=== PATIENT | female | born 1935 | race African-American/Black ===

== ENCOUNTER 2019-10-23 12:40 | Inpatient (IN) | payer OTHER ==
[~2019-10-23] VITALS: Ht 165.1 cm; Wt 93.5 kg
[2019-10-23] MEDS ORDERED: LABETALOL HCL 5 MG/ML 4ML SYRINGE IV ONE (13:15)
[2019-10-23] MEDS ORDERED: FUROSEMIDE 40 MG/4 ML VIAL IV ONE (13:30)
[2019-10-23 14:02] LABS: Basophils # (auto) 0 10 ^3/uL (0-0.2); Basophils % (auto) 0.4 % (0.0-2.0); Eosinophils # (auto) 0 10 ^3/uL (0-0.8); Eosinophils % (auto) 0.2 % (0.0-7.0); Hematocrit 40.9 % (36.0-46.0); Hemoglobin 13.2 g/dL (12.2-16.2); Lymphocytes # (auto) 0.9 10 ^3/uL (0.4-5.4); Mean Corpuscular Hemoglobin 29.1 pg (28.0-32.0); Mean Corpuscular Hgb Conc. 32.3 g/dL (32.0-36.0); Mean Corpuscular Volume 90.1 fL (80.0-100.0); Monocytes # (auto) 0.5 10 ^3/uL (0-1.3); Monocytes % (auto) 6.5 % (0.0-12.0); Neutrophils # (auto) 6.5 10 ^3/uL (1.6-8.6); Neutrophils % (auto) 81.9 % (37.0-80.0); Nucleated Red Blood Cells % 0.1 %; Platelet Count (auto) 214 10^3/uL (140-450); Red Blood Cells 4.54 10^6/uL (4.0-5.20); Red Cell Distribution Width 14.8 % (11.8-14.3); White Blood Cell 7.9 10^3/uL (4.4-10.8)
[2019-10-23 14:13] LABS: BUN/Creatinine Ratio 17.7
[2019-10-23 14:17] LABS: Total Protein 7.5 g/dL (6.4-8.2)
[2019-10-23] MEDS ORDERED: ASPirin 81 mg TAB PO ONE (15:00)
[2019-10-23] MEDS ORDERED: NITROGLYCERIN 50MG/250ML 250 ML IV ONE (15:00)
[2019-10-23] MEDS ORDERED: ENOXAPARIN SOD 120 MG/0.8 ML SYRINGE SC ONE (15:00)
[2019-10-23] MEDS ORDERED: NITROGLYCERIN 50MG/250ML 250 ML IV SCH (15:00)
[2019-10-23] MEDS ORDERED: ALBUTEROL SULF 2.5 MG/0.5ML(0.5%) NEB SOLN NEB PRN (15:15)
[2019-10-23] MEDS ORDERED: MORPHINE SULF INJ 2 MG/ML SYRINGE 1ML IV PRN (15:15)
[2019-10-23] MEDS ORDERED: traMADol HCL 50 MG TAB PO PRN (15:15)
[2019-10-23] MEDS ORDERED: NITROGLYCERIN 0.4 MG SL TAB SL PRN (15:15)
[2019-10-23] MEDS ORDERED: ONDANSETRON HCL 4 MG/2 ML VIAL IV PRN (15:15)
[2019-10-23] MEDS ORDERED: ACETAMINOPHEN 500 MG TAB PO PRN (15:15)
[2019-10-23] MEDS ORDERED: LACTULOSE 20Gm/30ML SOLN PO PRN ×2 (15:15)
[2019-10-23 19:01] VITALS: BP 121/53
[2019-10-23] MEDS: FUROSEMIDE 40 MG/4 ML VIAL IV SCH (20:00)
[2019-10-23] MEDS: CARVEDILOL 3.125 MG TAB PO SCH (20:05)
[2019-10-23] MEDS: SODIUM CHLOR 0.9% PF (SALINE LOCK) 10ML VIAL/SYR IV SCH (21:54)
[2019-10-23] MEDS ORDERED: ENOXAPARIN SOD 80 MG/0.8ML SYRINGE SC SCH (22:00)
[2019-10-23] MEDS: ATORVASTATIN 20 MG TAB PO SCH (22:00)
[2019-10-23 22:14] LABS: Urine WBC None Seen /hpf (0 - 5)
[2019-10-23 22:27] LABS: Urine Amorphous Crystal FEW /hpf (None Seen); Urine Bacteria MANY /hpf (None Seen); Urine Blood 3+ /uL (Negative); Urine Hyaline Cast FEW /lpf (0 - 2); Urine Mucus FEW (None Seen); Urine Specific Gravity 1.009 (1.001-1.035)
[2019-10-23] MEDS: cefTRIAXone 1GM/50ML D5W 50 ML IV SCH (23:44)
[2019-10-24] MEDS: FUROSEMIDE 40 MG/4 ML VIAL IV SCH ×2 (05:23→18:39)
[2019-10-24] MEDS: SODIUM CHLOR 0.9% PF (SALINE LOCK) 10ML VIAL/SYR IV SCH ×3 (05:24→22:28)
[2019-10-24] MEDS ORDERED: ENOXAPARIN SOD 80 MG/0.8ML SYRINGE SC SCH (06:00)
[2019-10-24 06:53] LABS: Basophils # (auto) 0 10 ^3/uL (0-0.2); Basophils % (auto) 0.5 % (0.0-2.0); Eosinophils # (auto) 0.2 10 ^3/uL (0-0.8); Eosinophils % (auto) 2.2 % (0.0-7.0); Hematocrit 43.9 % (36.0-46.0); Hemoglobin 14.2 g/dL (12.2-16.2); Lymphocytes % (auto) 25.5 % (10.0-50.0); Mean Corpuscular Hemoglobin 29.5 pg (28.0-32.0); Mean Corpuscular Hgb Conc. 32.5 g/dL (32.0-36.0); Mean Corpuscular Volume 90.8 fL (80.0-100.0); Monocytes # (auto) 0.6 10 ^3/uL (0-1.3); Monocytes % (auto) 7.3 % (0.0-12.0); Neutrophils % (auto) 64.5 % (37.0-80.0); Nucleated Red Blood Cells % 0.2 %; Platelet Count (auto) 180 10^3/uL (140-450); Red Blood Cells 4.83 10^6/uL (4.0-5.20); White Blood Cell 7.8 10^3/uL (4.4-10.8)
[2019-10-24 07:12] LABS: Chloride 106 mmol/L (98-107); Potassium 3.7 mmol/L (3.5-5.1); Sodium 137 mmol/L (136-145)
[2019-10-24 07:20] LABS: Alanine Aminotransferase 15 U/L (13-56); Albumin 2.6 g/dL (3.4-5.0); Anion Gap 8 (5-15); Aspartate Aminotransferase 31 U/L (15-37); BUN/Creatinine Ratio 18.4; Blood Urea Nitrogen 26 mg/dL (7-18); Calcium 10.1 mg/dL (8.5-10.1); Carbon Dioxide 23 mmol/L (21-32); Cholesterol 268 mg/dL (< 200); GFR African American 46 mL/min; GFR Non-African American 38 mL/min; Glucose 121 mg/dL (74-106)
[2019-10-24 07:22] LABS: Alkaline Phosphatase 94 U/L (45-117); Bilirubin, Total 1.2 mg/dL (0.2-1.0); HDL Cholesterol 70 mg/dL (40-59); LDL Cholesterol 180 mg/dL (< 100); Total Protein 7.8 g/dL (6.4-8.2); Triglycerides 88 mg/dL (< 150)
[2019-10-24] MEDS: CARVEDILOL 3.125 MG TAB PO SCH (08:00)
[2019-10-24] MEDS ORDERED: HEPARIN DRIP/D5W 100UNITS/ML 250 ML IV SCH ×2 (08:50→09:15)
[2019-10-24] MEDS ORDERED: CLOPIDOGREL BISULFATE 75 MG TAB PO ONE (09:00)
[2019-10-24] MEDS ORDERED: CARVEDILOL 3.125 MG TAB PO ONE (09:00)
[2019-10-24] MEDS ORDERED: HEPARIN SODIUM (PORCINE) 5000 UNITS/ML 1ML VIAL IV ONE (09:00)
[2019-10-24] MEDS ORDERED: CARVEDILOL 12.5 MG TAB PO ONE (09:00)
[2019-10-24] MEDS: POTASSIUM CHL 20 Meq TABLET PO SCH (10:00)
[2019-10-24] MEDS ORDERED: ENALAPRIL MALEATE 2.5 MG TAB PO SCH (10:00)
[2019-10-24] MEDS: ASPirin 81 mg TAB PO SCH (10:00)
[2019-10-24] MEDS ORDERED: levoFLOXacin 500MG 100 ML IV SCH (10:00)
[2019-10-24] MEDS ORDERED: CARVEDILOL 12.5 MG TAB PO SCH (10:00)
[2019-10-24] MEDS: PANTOPRAZOLE 40 MG TAB PO SCH (10:00)
[2019-10-24] MEDS ORDERED: CLOPIDOGREL 300 MG TAB PO ONE (10:15)
[2019-10-24 11:42] LABS: INR 1.17 (0.9-1.15)
[2019-10-24 11:44] LABS: Partial Thromboplastin Time 106.8 sec (23.64-32.05)
[2019-10-24 14:25] LABS: Basophils # (auto) 0 10 ^3/uL (0-0.2); Basophils % (auto) 0.5 % (0.0-2.0); Eosinophils # (auto) 0.2 10 ^3/uL (0-0.8); Eosinophils % (auto) 2.8 % (0.0-7.0); Hemoglobin 13.4 g/dL (12.2-16.2); Lymphocytes % (auto) 22.8 % (10.0-50.0); Mean Corpuscular Hemoglobin 28.9 pg (28.0-32.0); Mean Corpuscular Hgb Conc. 32.6 g/dL (32.0-36.0); Mean Corpuscular Volume 88.5 fL (80.0-100.0); Monocytes # (auto) 0.7 10 ^3/uL (0-1.3); Neutrophils # (auto) 5.8 10 ^3/uL (1.6-8.6); Neutrophils % (auto) 65.9 % (37.0-80.0); Platelet Count (auto) 214 10^3/uL (140-450); Red Blood Cells 4.63 10^6/uL (4.0-5.20); Red Cell Distribution Width 14.9 % (11.8-14.3); White Blood Cell 8.8 10^3/uL (4.4-10.8)
[2019-10-24 17:00] VITALS: BP 126/62
[2019-10-24 17:49] VITALS: BP 126/62
[2019-10-24] MEDS ORDERED: CARVEDILOL 3.125 MG TAB PO SCH (18:00)
[2019-10-24 20:21] LABS: INR 1.28 (0.9-1.15); Partial Thromboplastin Time 61.2 sec (23.64-32.05)
[2019-10-24 22:00] VITALS: BP 162/74
[2019-10-24] MEDS: ATORVASTATIN 20 MG TAB PO SCH (22:28)
[2019-10-24] MEDS: hydrALAZINE HCL 20 MG/ML VL IV PRN (22:29)
[2019-10-24] MEDS ORDERED: LISINOPRIL 20 MG TAB PO ONE (23:15)
[2019-10-24] MEDS ORDERED: METOPROLOL TARTRATE 50 MG TAB PO ONE (23:15)
[2019-10-24] MEDS ORDERED: amLODIPine BESYLATE 5 MG TAB PO ONE (23:30)
[2019-10-24] MEDS ORDERED: IPRATROPIUM BROM 0.5 MG/2.5ML INH SOL NEB PRN (23:45)
[2019-10-24] MEDS ORDERED: ALBUTEROL SULF 2.5 MG/0.5ML(0.5%) NEB SOLN NEB PRN (23:45)
[2019-10-25] MEDS: cefTRIAXone 1GM/50ML D5W 50 ML IV SCH (01:40)
[2019-10-25] MEDS ORDERED: IPRATROPIUM BROM 0.5 MG/2.5ML INH SOL NEB SCH (02:00)
[2019-10-25 03:21] LABS: Basophils # (auto) 0.1 10 ^3/uL (0-0.2); Basophils % (auto) 0.5 % (0.0-2.0); Eosinophils # (auto) 0.2 10 ^3/uL (0-0.8); Eosinophils % (auto) 1.6 % (0.0-7.0); Hematocrit 45.7 % (36.0-46.0); Hemoglobin 14.9 g/dL (12.2-16.2); Lymphocytes # (auto) 1.3 10 ^3/uL (0.4-5.4); Lymphocytes % (auto) 12.1 % (10.0-50.0); Mean Corpuscular Hemoglobin 29.1 pg (28.0-32.0); Mean Corpuscular Hgb Conc. 32.6 g/dL (32.0-36.0); Mean Corpuscular Volume 89.1 fL (80.0-100.0); Monocytes # (auto) 0.6 10 ^3/uL (0-1.3); Monocytes % (auto) 5.3 % (0.0-12.0); Neutrophils # (auto) 8.5 10 ^3/uL (1.6-8.6); Neutrophils % (auto) 80.5 % (37.0-80.0); Platelet Count (auto) 203 10^3/uL (140-450); Red Blood Cells 5.13 10^6/uL (4.0-5.20); Red Cell Distribution Width 14.9 % (11.8-14.3); White Blood Cell 10.6 10^3/uL (4.4-10.8)
[2019-10-25 03:37] LABS: INR 1.07 (0.9-1.15); Partial Thromboplastin Time 33.9 sec (23.64-32.05)
[2019-10-25 03:51] LABS: Anion Gap 11 (5-15); Blood Urea Nitrogen 29 mg/dL (7-18); Calcium 9.9 mg/dL (8.5-10.1); Carbon Dioxide 27 mmol/L (21-32); Chloride 100 mmol/L (98-107); Glucose 161 mg/dL (74-106); Potassium 3.6 mmol/L (3.5-5.1); Sodium 138 mmol/L (136-145)
[2019-10-25 03:53] LABS: Alanine Aminotransferase 16 U/L (13-56); Albumin 3.1 g/dL (3.4-5.0); Aspartate Aminotransferase 25 U/L (15-37); BUN/Creatinine Ratio 16.8; GFR African American 36 mL/min; GFR Non-African American 30 mL/min
[2019-10-25 03:55] LABS: Alkaline Phosphatase 98 U/L (45-117); Bilirubin, Total 1.1 mg/dL (0.2-1.0); Cholesterol 274 mg/dL (< 200); HDL Cholesterol 73 mg/dL (40-59); Phosphorus 3.1 mg/dL (2.5-4.90); Total Protein 7.8 g/dL (6.4-8.2); Triglycerides 78 mg/dL (< 150)
[2019-10-25] MEDS ORDERED: HEPARIN SODIUM (PORCINE) 5000 UNITS/ML 1ML VIAL IV ONE (04:00)
[2019-10-25 04:24] LABS: LDL Cholesterol 183 mg/dL (< 100)
[2019-10-25 05:00] VITALS: BP 162/109
[2019-10-25] MEDS: FUROSEMIDE 40 MG/4 ML VIAL IV SCH ×2 (05:45→18:29)
[2019-10-25] MEDS: SODIUM CHLOR 0.9% PF (SALINE LOCK) 10ML VIAL/SYR IV SCH ×3 (05:45→21:42)
[2019-10-25 08:35] VITALS: BP 165/81
[2019-10-25] MEDS: ASPirin 81 mg TAB PO SCH (10:00)
[2019-10-25] MEDS ORDERED: amLODIPine BESYLATE 5 MG TAB PO SCH (10:00)
[2019-10-25] MEDS ORDERED: METOPROLOL TARTRATE 50 MG TAB PO SCH (10:00)
[2019-10-25] MEDS: PANTOPRAZOLE 40 MG TAB PO SCH (10:00)
[2019-10-25] MEDS: POTASSIUM CHL 20 Meq TABLET PO SCH (10:00)
[2019-10-25] MEDS ORDERED: LISINOPRIL 20 MG TAB PO SCH ×2 (10:00)
[2019-10-25] MEDS: FAMOTIDINE 20 MG TAB PO SCH (10:00)
[2019-10-25 10:10] LABS: INR 1.09 (0.9-1.15)
[2019-10-25 10:17] LABS: Partial Thromboplastin Time 75.8 sec (23.64-32.05)
[2019-10-25] MEDS ORDERED: HEPARIN DRIP/D5W 100UNITS/ML 250 ML IV SCH (10:30)
[2019-10-25 12:44] VITALS: BP 158/85
[2019-10-25 16:35] VITALS: BP 156/92
[2019-10-25 17:55] LABS: INR 1.09 (0.9-1.15); Partial Thromboplastin Time 67.1 sec (23.64-32.05)
[2019-10-25] MEDS: ATORVASTATIN 20 MG TAB PO SCH (21:43)
[2019-10-25 22:20] VITALS: BP 132/49
[2019-10-26] MEDS: cefTRIAXone 1GM/50ML D5W 50 ML IV SCH (01:19)
[2019-10-26 03:26] LABS: INR 1.09 (0.9-1.15); Partial Thromboplastin Time 39.4 sec (23.64-32.05)
[2019-10-26] MEDS ORDERED: HEPARIN DRIP/D5W 100UNITS/ML 250 ML IV SCH (03:45)
[2019-10-26 05:12] VITALS: BP 157/80
[2019-10-26] MEDS: FUROSEMIDE 40 MG/4 ML VIAL IV SCH (05:30)
[2019-10-26] MEDS: SODIUM CHLOR 0.9% PF (SALINE LOCK) 10ML VIAL/SYR IV SCH ×3 (05:30→21:45)
[2019-10-26 06:37] LABS: Basophils # (auto) 0.1 10 ^3/uL (0-0.2); Basophils % (auto) 0.6 % (0.0-2.0); Eosinophils # (auto) 0 10 ^3/uL (0-0.8); Eosinophils % (auto) 0.1 % (0.0-7.0); Hemoglobin 13.6 g/dL (12.2-16.2); Lymphocytes # (auto) 1.6 10 ^3/uL (0.4-5.4); Lymphocytes % (auto) 12.6 % (10.0-50.0); Mean Corpuscular Hemoglobin 29.5 pg (28.0-32.0); Mean Corpuscular Hgb Conc. 33.2 g/dL (32.0-36.0); Mean Corpuscular Volume 88.6 fL (80.0-100.0); Monocytes # (auto) 1.1 10 ^3/uL (0-1.3); Monocytes % (auto) 8.5 % (0.0-12.0); Neutrophils # (auto) 9.8 10 ^3/uL (1.6-8.6); Neutrophils % (auto) 78.2 % (37.0-80.0); Platelet Count (auto) 221 10^3/uL (140-450); Red Blood Cells 4.63 10^6/uL (4.0-5.20); Red Cell Distribution Width 14.8 % (11.8-14.3); White Blood Cell 12.6 10^3/uL (4.4-10.8)
[2019-10-26 06:41] LABS: INR 1.09 (0.9-1.15); Partial Thromboplastin Time 65.9 sec (23.64-32.05)
[2019-10-26 06:45] LABS: Potassium 3.5 mmol/L (3.5-5.1)
[2019-10-26 07:09] LABS: Albumin 2.9 g/dL (3.4-5.0); BUN/Creatinine Ratio 16.7; Bilirubin, Total 0.8 mg/dL (0.2-1.0); Magnesium 1.9 mg/dL (1.6-2.6); Phosphorus 4.2 mg/dL (2.5-4.90); Total Protein 7.5 g/dL (6.4-8.2)
[2019-10-26] MEDS ORDERED: LIDOCAINE 2%HCL (LOCAL ANESTH.) INJ 20ML MDV ONE (07:29)
[2019-10-26] MEDS ORDERED: IOHEXOL 350 MG/ML 100ML IJ ONE (07:29)
[2019-10-26] MEDS ORDERED: ACETYLCYSTEINE ORAL for CIN 20%(200MG/ML) 4ML PO ONE (07:45)
[2019-10-26] MEDS ORDERED: ANGIOMAX 250 MG VIAL IV ONE (08:22)
[2019-10-26] MEDS ORDERED: diphenhdrAMINE HCL 50 MG/1 ML VL ONE (08:23)
[2019-10-26] MEDS ORDERED: MIDAZOLAM HCL 1MG/1ML-2 ML VIAL ONE (08:23)
[2019-10-26] MEDS ORDERED: VERAPAMIL 2.5MG/ML INJ 2ML VIAL IV ONE (08:23)
[2019-10-26] MEDS ORDERED: fentaNYL CITRATE 100 MCG/2 ML VL ONE (08:24)
[2019-10-26] MEDS ORDERED: SODIUM CHL 0.9% 50 ML ONE (08:24)
[2019-10-26 09:00] VITALS: BP 114/85
[2019-10-26] MEDS ORDERED: IODIXANOL 320MG/ML 100ML BTL IV ONE (09:18)
[2019-10-26] MEDS ORDERED: hydrALAZINE HCL 20 MG/ML VL ONE (09:36)
[2019-10-26] MEDS ORDERED: TICAGRELOR 90 MG TAB ONE (09:47)
[2019-10-26] MEDS ORDERED: ASPirin 325 MG TAB ONE (09:47)
[2019-10-26] MEDS ORDERED: ASPirin-EC 81 mg tab PO ONE (10:00)
[2019-10-26] MEDS: FAMOTIDINE 20 MG TAB PO SCH (10:00)
[2019-10-26] MEDS: PANTOPRAZOLE 40 MG TAB PO SCH (10:00)
[2019-10-26] MEDS: ASPirin 81 mg TAB PO SCH (10:00)
[2019-10-26] MEDS ORDERED: LISINOPRIL 20 MG TAB PO SCH (10:18)
[2019-10-26] MEDS ORDERED: TICAGRELOR 90 MG TAB NG ONE (11:45)
[2019-10-26] MEDS ORDERED: ASPirin-EC 325mg tab PO ONE (12:15)
[2019-10-26] MEDS: amLODIPine BESYLATE 5 MG TAB PO SCH (12:27)
[2019-10-26] MEDS: CARVEDILOL 3.125 MG TAB PO SCH ×2 (12:27→17:04)
[2019-10-26 13:00] VITALS: BP 135/61
[2019-10-26] MEDS: hydrALAZINE HCL 10 MG TAB PO SCH ×2 (13:31→21:45)
[2019-10-26] MEDS: SODIUM CHLORIDE 0.9% 1,000 ML IV SCH (13:31)
[2019-10-26 13:44] LABS: INR 1.58 (0.9-1.15); Partial Thromboplastin Time 66.7 sec (23.64-32.05)
[2019-10-26 16:28] VITALS: BP 143/90
[2019-10-26] MEDS: TICAGRELOR 90 MG TAB PO SCH (21:46)
[2019-10-26] MEDS: ATORVASTATIN 20 MG TAB PO SCH (21:46)
[2019-10-26 22:00] VITALS: BP 166/80
[2019-10-26] MEDS ORDERED: ACETYLCYSTEINE ORAL for CIN 20%(200MG/ML) 4ML PO SCH (22:00)
[2019-10-27] MEDS: cefTRIAXone 1GM/50ML D5W 50 ML IV SCH (00:31)
[2019-10-27 05:00] VITALS: BP 151/87
[2019-10-27] MEDS: hydrALAZINE HCL 10 MG TAB PO SCH ×3 (06:00→23:09)
[2019-10-27] MEDS: SODIUM CHLOR 0.9% PF (SALINE LOCK) 10ML VIAL/SYR IV SCH ×3 (06:16→23:08)
[2019-10-27] MEDS: SODIUM CHLORIDE 0.9% 1,000 ML IV SCH ×2 (06:16→18:48)
[2019-10-27] MEDS: CARVEDILOL 3.125 MG TAB PO SCH ×2 (07:22→18:00)
[2019-10-27] MEDS: hydrALAZINE HCL 20 MG/ML VL IV PRN (07:26)
[2019-10-27 08:20] LABS: Basophils # (auto) 0 10 ^3/uL (0-0.2); Basophils % (auto) 0.1 % (0.0-2.0); Eosinophils # (auto) 0 10 ^3/uL (0-0.8); Hematocrit 41.5 % (36.0-46.0); Hemoglobin 13.4 g/dL (12.2-16.2); Lymphocytes % (auto) 5.8 % (10.0-50.0); Mean Corpuscular Hemoglobin 29.1 pg (28.0-32.0); Mean Corpuscular Hgb Conc. 32.2 g/dL (32.0-36.0); Mean Corpuscular Volume 90.2 fL (80.0-100.0); Monocytes # (auto) 1.2 10 ^3/uL (0-1.3); Neutrophils # (auto) 15.1 10 ^3/uL (1.6-8.6); Neutrophils % (auto) 87.1 % (37.0-80.0); Platelet Count (auto) 210 10^3/uL (140-450); Red Cell Distribution Width 14.8 % (11.8-14.3); White Blood Cell 17.3 10^3/uL (4.4-10.8)
[2019-10-27 08:32] LABS: BUN/Creatinine Ratio 20.2; Calcium 10.2 mg/dL (8.5-10.1); Potassium 3.4 mmol/L (3.5-5.1)
[2019-10-27] MEDS: PANTOPRAZOLE 40 MG TAB PO SCH (08:57)
[2019-10-27] MEDS: FAMOTIDINE 20 MG TAB PO SCH (08:57)
[2019-10-27] MEDS: ASPirin 81 mg TAB PO SCH (10:05)
[2019-10-27] MEDS: TICAGRELOR 90 MG TAB PO SCH ×2 (10:05→23:10)
[2019-10-27] MEDS: amLODIPine BESYLATE 5 MG TAB PO SCH (10:05)
[2019-10-27 14:20] VITALS: BP 142/64
[2019-10-27 17:00] VITALS: BP 143/85
[2019-10-27] MEDS ORDERED: MEROPENEM 500MG IVPB 50 ML IV ONE (19:15)
[2019-10-27] MEDS ORDERED: DOXYCYCLINE 100 MG TAB/CAP PO ONE (19:15)
[2019-10-27 22:00] VITALS: BP 145/76
[2019-10-27] MEDS: DOXYCYCLINE 100 MG TAB/CAP PO SCH (22:00)
[2019-10-27] MEDS: ATORVASTATIN 20 MG TAB PO SCH (22:00)
[2019-10-28 05:00] VITALS: BP 140/97
[2019-10-28] MEDS: hydrALAZINE HCL 10 MG TAB PO SCH ×3 (06:00→22:00)
[2019-10-28] MEDS: SODIUM CHLOR 0.9% PF (SALINE LOCK) 10ML VIAL/SYR IV SCH ×3 (06:10→22:11)
[2019-10-28 07:19] LABS: Calcium 9.5 mg/dL (8.5-10.1); Potassium 3.5 mmol/L (3.5-5.1)
[2019-10-28 07:22] LABS: BUN/Creatinine Ratio 15.7
[2019-10-28] MEDS: CARVEDILOL 3.125 MG TAB PO SCH ×2 (07:55→18:00)
[2019-10-28] MEDS: SODIUM CHLORIDE 0.9% 1,000 ML IV SCH ×2 (07:56→21:39)
[2019-10-28 08:00] VITALS: BP 148/51
[2019-10-28] MEDS ORDERED: BUMETANIDE 2.5mg/10ml (0.25 mg/ml) INJ IV ONE (08:15)
[2019-10-28] MEDS: PANTOPRAZOLE 40 MG TAB PO SCH (08:34)
[2019-10-28] MEDS: FAMOTIDINE 20 MG TAB PO SCH (08:34)
[2019-10-28] MEDS: MEROPENEM 500MG IVPB 50 ML IV SCH ×2 (09:17→23:13)
[2019-10-28] MEDS: ASPirin 81 mg TAB PO SCH (10:03)
[2019-10-28] MEDS: TICAGRELOR 90 MG TAB PO SCH ×2 (10:05→22:00)
[2019-10-28] MEDS: DOXYCYCLINE 100 MG TAB/CAP PO SCH (10:06)
[2019-10-28] MEDS: amLODIPine BESYLATE 5 MG TAB PO SCH (10:06)
[2019-10-28 13:06] LABS: Hematocrit 39.5 % (36.0-46.0); Hemoglobin 12.8 g/dL (12.2-16.2); Mean Corpuscular Hemoglobin 28.9 pg (28.0-32.0); Mean Corpuscular Hgb Conc. 32.3 g/dL (32.0-36.0); Mean Corpuscular Volume 89.3 fL (80.0-100.0); Platelet Count (auto) 203 10^3/uL (140-450); Red Blood Cells 4.42 10^6/uL (4.0-5.20); Red Cell Distribution Width 14.9 % (11.8-14.3); White Blood Cell 19.1 10^3/uL (4.4-10.8)
[2019-10-28 13:28] LABS: Basophils % (manual) 0 (0.0-2.0); Blast Cells 0; Eosinophils % (manual) 0 (0-7); Metamyelocytes % 0; Myelocytes % 0; Promyelocytes % 0; Reactive Lymphocytes 0
[2019-10-28] MEDS: hydrALAZINE HCL 20 MG/ML VL IV PRN (13:43)
[2019-10-28 13:46] VITALS: BP 153/99
[2019-10-28 13:46] LABS: Band Neutrophils % (manual) 1; Lymphocytes % (manual) 3 (10.0-50.0); Monocytes % (manual) 3 (0-12)
[2019-10-28] MEDS: LINEZOLID 600MG/300ML 300 ML IV SCH ×2 (16:22→21:41)
[2019-10-28 17:48] VITALS: BP 118/73
[2019-10-28] MEDS: ATORVASTATIN 20 MG TAB PO SCH (22:00)
[2019-10-28 22:13] VITALS: BP 95/72
[2019-10-29] MEDS: ALBUTEROL SULF 2.5 MG/0.5ML(0.5%) NEB SOLN NEB PRN ×2 (01:09→08:22)
[2019-10-29 01:22] VITALS: BP 95/72
[2019-10-29] MEDS ORDERED: FUROSEMIDE 20 MG/2 ML VIAL IV ONE (02:45)
[2019-10-29 05:00] VITALS: BP_SYST 108; BP_SYST 129; BP_SYST 72; BP_DIAS 49; BP_DIAS 60; BP_DIAS 68
[2019-10-29] MEDS: hydrALAZINE HCL 10 MG TAB PO SCH (06:00)
[2019-10-29] MEDS: SODIUM CHLOR 0.9% PF (SALINE LOCK) 10ML VIAL/SYR IV SCH ×2 (06:12→17:08)
[2019-10-29 07:49] LABS: Basophils # (auto) 0.1 10 ^3/uL (0-0.2); Basophils % (auto) 0.4 % (0.0-2.0); Eosinophils # (auto) 0 10 ^3/uL (0-0.8); Hematocrit 38.9 % (36.0-46.0); Hemoglobin 12.7 g/dL (12.2-16.2); Lymphocytes # (auto) 0.8 10 ^3/uL (0.4-5.4); Mean Corpuscular Hgb Conc. 32.7 g/dL (32.0-36.0); Mean Corpuscular Volume 88.6 fL (80.0-100.0); Monocytes # (auto) 1.3 10 ^3/uL (0-1.3); Monocytes % (auto) 6.1 % (0.0-12.0); Neutrophils # (auto) 18.4 10 ^3/uL (1.6-8.6); Neutrophils % (auto) 89.5 % (37.0-80.0); Nucleated Red Blood Cells % 0.1 %; Platelet Count (auto) 224 10^3/uL (140-450); Red Blood Cells 4.39 10^6/uL (4.0-5.20); Red Cell Distribution Width 15.2 % (11.8-14.3); White Blood Cell 20.5 10^3/uL (4.4-10.8)
[2019-10-29 08:13] LABS: Anion Gap 11 (5-15); BUN/Creatinine Ratio 14.2; Blood Urea Nitrogen 77 mg/dL (7-18); Carbon Dioxide 25 mmol/L (21-32); Chloride 105 mmol/L (98-107); GFR African American 10 mL/min; GFR Non-African American 8 mL/min; Glucose 249 mg/dL (74-106); Potassium 3.7 mmol/L (3.5-5.1); Sodium 141 mmol/L (136-145)
[2019-10-29] MEDS ORDERED: BUMETANIDE 2.5mg/10ml (0.25 mg/ml) INJ IV ONE ×2 (08:15→18:00)
[2019-10-29 08:25] LABS: Albumin 2.6 g/dL (3.4-5.0); Bilirubin, Direct 0.2 mg/dL (0-0.2)
[2019-10-29 08:28] LABS: Bilirubin, Total 0.7 mg/dL (0.2-1.0); Total Protein 7.6 g/dL (6.4-8.2)
[2019-10-29] MEDS ORDERED: SODIUM CHLORIDE 0.9% 1,000 ML IV SCH (09:45)
[2019-10-29] MEDS: TICAGRELOR 90 MG TAB PO SCH (10:00)
[2019-10-29] MEDS: CARVEDILOL 3.125 MG TAB PO SCH ×2 (10:49→18:00)
[2019-10-29] MEDS: PANTOPRAZOLE 40 MG TAB PO SCH (10:50)
[2019-10-29] MEDS: ASPirin 81 mg TAB PO SCH (10:50)
[2019-10-29] MEDS: MEROPENEM 500MG IVPB 50 ML IV SCH (10:50)
[2019-10-29] MEDS: FAMOTIDINE 20 MG TAB PO SCH (10:50)
[2019-10-29] MEDS: LINEZOLID 600MG/300ML 300 ML IV SCH (10:51)
[2019-10-29] MEDS ORDERED: ALBUTEROL SULF 2.5 MG/0.5ML(0.5%) NEB SOLN NEB PRN (11:00)
[2019-10-29 14:13] VITALS: BP 131/65
[2019-10-29 18:00] VITALS: BP 148/110
== END 2019-10-29 21:04 | disposition short-term general hospital (02) | DRG 853 ==
LOC: ER 12:40 → OVERFLOW 12:41 → TELE-CENTR 10-24 16:52
PROVIDERS: ADMIT Internal Medicine; ATTEND Internal Medicine Nephrology
PROC: 027135Z Dilation of Coronary Artery, Two Arteries with Two Drug-eluting Intraluminal Devices, Percutaneous Approach (ICD-10-PCS; principal; 2019-10-26)
PROC: 4A023N7 Measurement of Cardiac Sampling and Pressure, Left Heart, Percutaneous Approach (ICD-10-PCS; 2019-10-26)
PROC: B211YZZ Fluoroscopy of Multiple Coronary Arteries using Other Contrast (ICD-10-PCS; 2019-10-26)
PROC: B215YZZ Fluoroscopy of Left Heart using Other Contrast (ICD-10-PCS; 2019-10-26)
DX: A41.9 Sepsis, unspecified organism (principal); I50.43 Acute on chronic combined systolic (congestive) and diastolic (congestive) heart failure; I21.4 Non-ST elevation (NSTEMI) myocardial infarction; N17.0 Acute kidney failure with tubular necrosis; J18.9 Pneumonia, unspecified organism; E44.1 Mild protein-calorie malnutrition; N39.0 Urinary tract infection, site not specified; I13.0 Hypertensive heart and chronic kidney disease with heart failure and stage 1 through stage 4 chronic kidney disease, or unspecified chronic kidney disease; I16.1 Hypertensive emergency; I16.0 Hypertensive urgency; R79.89 Other specified abnormal findings of blood chemistry; E66.01 Morbid (severe) obesity due to excess calories; I48.91 Unspecified atrial fibrillation; N18.3 Chronic kidney disease, stage 3 (moderate); I95.9 Hypotension, unspecified; R34 Anuria and oliguria; I25.2 Old myocardial infarction; E78.5 Hyperlipidemia, unspecified; F03.90 Unspecified dementia, unspecified severity, without behavioral disturbance, psychotic disturbance, mood disturbance, and anxiety; I08.0 Rheumatic disorders of both mitral and aortic valves; I25.10 Atherosclerotic heart disease of native coronary artery without angina pectoris; I70.0 Atherosclerosis of aorta; Z68.34 Body mass index [BMI] 34.0-34.9, adult; M19.90 Unspecified osteoarthritis, unspecified site; Z03.818 Encounter for observation for suspected exposure to other biological agents ruled out
CPT/HCPCS: 36415; 70450; 71045; 71250; 72192; 76775; 80048; 80053; 80061; 80076; 81001; 82550; 83036; 83735; 83880; 84100; 84443; 84484; 84550; 85007; 85025; 85027; 85610; 85730; 86850; 86900; 86901; 87040; 87086; 93005; 93306; 94640; 99152; 99153; 99291; A4565; C1874; C1887; G0378; J0696; J1956; J2185; J2250; J3490; Q9967